=== PATIENT | male | born 1990 | race African-American/Black ===

== ENCOUNTER 2017-01-18 11:43 | Emergency (ER) | payer MEDICAID ==
[~2017-01-18] VITALS: Ht 175.3 cm; Wt 160.0 kg
[2017-01-18] MEDS ORDERED: TETANUS, DIPHTHERIA, PERTUSSIS VAC/PF 0.5ML (>7YR OLD) IM ONE (13:00)
[2017-01-18 14:49] VITALS: BP 162/95
== END 2017-01-18 14:54 | disposition home or self-care (01) ==
LOC: ER 11:43
DX: L02.811 Cutaneous abscess of head [any part, except face] (principal); I10 Essential (primary) hypertension; Z23 Encounter for immunization; J45.909 Unspecified asthma, uncomplicated; Z91.14 Patient's other noncompliance with medication regimen
CPT/HCPCS: 90471; 90715; 99284; Z7610